=== PATIENT | female | born 1930 | race Caucasian/White ===

== ENCOUNTER 2017-09-22 20:28 | Inpatient (IN) | payer MEDICARE, OTHER ==
[~2017-09-22] VITALS: Ht 157.5 cm; Wt 63.5 kg
[~2017-09-22 20:28] MED LIST: ACET160O10 GT; ALBU2.5V13 IH; ALPR0.25 GT; ALPR0.5T GT; AMIO200T2 GT; AMLO5TAB4 GT; BENEFIBER GT; BISA10SU61 RC; CLON1PAT13 TD; CLOP75TA15 GT; DEXT1DRO3 OP; DIPH25CA83 GT; DOCU50LI GT; ESCI10TA GT; FOLI1TAB16 GT; FURO-145 GT; GUAI5SYR GT; HYDR-4075 GT; HYDR-552 GT; LACT10SO29 GT; METO25TA6 GT; METO5TAB87 GT; MULT473L GT; PANT40SU GT; POLY17PO4 GT; POTA10TA15 GT; PRAV20TA4 GT; PROT946L GT; SIME40DR2 GT; VORI200T4 GT; [UNRECOGNIZED DRUG - CODE] GT; [UNRECOGNIZED DRUG - CODE] SQ
[2017-09-22] MEDS ORDERED: methylPREDNISolone SOD SUCC 125 MG/2ML VIAL IV ONE (20:30)
[2017-09-22] MEDS ORDERED: IPRATROPIUM NEB FS 0.5 MG/2.5 ML AMPUL.NEB NEB ONE (20:30)
[2017-09-22] MEDS ORDERED: ALBUTEROL FS 2.5 MG/3 ML VIAL.NEB NEB ONE (20:30)
[2017-09-22] MEDS ORDERED: methylPREDNISolone SOD SUCC 125 MG/2ML VIAL ONE (20:33)
[2017-09-22 20:46] LABS: BASOPHILS # (AUTO) 0.1 /CMM (0.0-0.2); BASOPHILS % (AUTO) 0.6 % (0.0-2.0); EOSINOPHILS # (AUTO) 0.2 /CMM (0.0-0.7); HEMATOCRIT 30 % (33-45); HEMOGLOBIN 10.2 g/dL (11.5-14.8); LYMPHOCYTES # (AUTO) 2.8 /CMM (0.8-4.8); LYMPHOCYTES % (AUTO) 16.3 % (20.0-44.0); MEAN CORPUSCULAR HEMOGLOBIN 29 PG (26.0-33.0); MEAN CORPUSCULAR HGB CONC 34 g/dl (31.0-36.0); MEAN CORPUSCULAR VOLUME 87 fL (82-100); MONOCYTES # (AUTO) 0.7 /CMM (0.1-1.30); MONOCYTES % (AUTO) 3.9 % (2.0-12.0); NEUTROPHILS # (AUTO) 13.6 /CMM (1.8-8.9); NEUTROPHILS % (AUTO) 78.2 % (43.0-81.0); PLATELET COUNT (AUTO) 550 /CMM (150-450); RDW COEFFICIENT OF VARIATION 13.7 (11.5-15.0); RED BLOOD CELL COUNT(AUTO) 3.49 MIL/uL (4.0-5.2); WHITE BLOOD COUNT (AUTO) 17.4 K/uL (4.3-11.0)
[2017-09-22] MEDS ORDERED: ALBUTEROL FS 2.5 MG/3 ML VIAL.NEB ONE (21:02)
[2017-09-22] MEDS ORDERED: IPRATROPIUM NEB FS 0.5 MG/2.5 ML AMPUL.NEB ONE (21:02)
[2017-09-22 21:06] LABS: INR 1.02 (0.87-1.13); PROTHROMBIN TIME 10.6 SECS (9.5-12.7)
[2017-09-22 21:07] LABS: CALCIUM, SERUM 9.7 mg/dL (8.5-10.1); CARBON DIOXIDE 29 mmol/L (21-32); CHLORIDE 105 mmol/L (98-107); CREATININE 2.3 mg/dL (0.6-1.3); GLUCOSE 129 mg/dL (74-106); POTASSIUM 4.7 mmol/L (3.5-5.1); SODIUM SERUM 142 mmol/L (136-145); UREA NITROGEN, BLOOD 35 mg/dL (7-18)
[2017-09-22 21:13] LABS: ALANINE AMINOTRANSFERASE 19 U/L (12-78); ALBUMIN 3.3 g/dL (3.4-5.0); ALKALINE PHOSPHATASE 152 U/L (46-116); ASPARTATE AMINOTRANSFERASE 26 U/L (15-37); BILIRUBIN,DIRECT 0.1 mg/dL (0.0-0.2); BILIRUBIN,TOTAL 0.5 mg/dL (0.2-1.0); TOTAL PROTEIN, SERUM 8.1 g/dL (6.4-8.2)
[2017-09-22 21:14] LABS: TROPONIN I < 0.017 ng/mL (0.00-0.056)
[2017-09-22] MEDS ORDERED: IV NS 0.9% 1,000 ML IV PRN (21:38)
[2017-09-22 22:00] VITALS: BP_SYST 120; BP_SYST 129; BP_DIAS 53
[2017-09-22] MEDS ORDERED: ONDANSETRON HCL/PF 4 MG/2 ML VIAL IVP PRN (22:00)
[2017-09-22] MEDS ORDERED: HYDROCODONE/APAP 5/325MG 1 EACH TABLET PO PRN (22:00)
[2017-09-22] MEDS ORDERED: ENOXAPARIN SODIUM 30 MG/0.3 ML DISP.SYRIN SQ SCH (22:00)
[2017-09-22] MEDS ORDERED: Z GUARD REMEDY 2 OZ OINT TP PRN (22:00)
[2017-09-22] MEDS ORDERED: PRAVASTATIN SODIUM 20 MG TABLET GT SCH (22:00)
[2017-09-22] MEDS ORDERED: PIPERACILLIN /TAZOBACTAM 2.25 G VIAL IV ONE (22:52)
[2017-09-22] MEDS ORDERED: ENOXAPARIN SODIUM 30 MG/0.3 ML DISP.SYRIN ONE (22:53)
[2017-09-22] MEDS: PIPERACILLIN /TAZOBACTAM 2.25 G in IV D5W 50 ML IV SCH (23:11)
[2017-09-23] VITALS: BP_SYST 111; BP_SYST 118; BP_DIAS 49; BP_DIAS 57
[2017-09-23] MEDS ORDERED: ALBUTEROL FS 2.5 MG/0.5 ML VIAL.NEB IH SCH
[2017-09-23] MEDS ORDERED: QUET25TA PO (01:10)
[2017-09-23] MEDS ORDERED: CLON0.5T4 PO (01:11)
[2017-09-23] MEDS ORDERED: QUETIAPINE FUMARATE 25 MG TABLET GT PRN (01:30)
[2017-09-23] MEDS ORDERED: ALBUTEROL FS 2.5 MG/0.5 ML VIAL.NEB ONE ×2 (02:27→07:22)
[2017-09-23 04:00] VITALS: BP 109/55
[2017-09-23] MEDS ORDERED: PIPERACILLIN /TAZOBACTAM 2.25 G VIAL IV ONE (05:17)
[2017-09-23] MEDS: PIPERACILLIN /TAZOBACTAM 2.25 G in IV D5W 50 ML IV SCH ×3 (05:28→17:17)
[2017-09-23] MEDS: ALBUTEROL FS 2.5 MG/0.5 ML VIAL.NEB IH SCH ×3 (07:28→19:55)
[2017-09-23 07:56] LABS: HEMATOCRIT 24 % (33-45); HEMOGLOBIN 7.9 g/dL (11.5-14.8); LYMPHOCYTES # (AUTO) 0.2 /CMM (0.8-4.8); LYMPHOCYTES % (AUTO) 1.4 % (20.0-44.0); MEAN CORPUSCULAR HEMOGLOBIN 28 PG (26.0-33.0); MEAN CORPUSCULAR HGB CONC 32 g/dl (31.0-36.0); MEAN CORPUSCULAR VOLUME 88 fL (82-100); MONOCYTES # (AUTO) 0.2 /CMM (0.1-1.30); MONOCYTES % (AUTO) 1.1 % (2.0-12.0); NEUTROPHILS # (AUTO) 15.2 /CMM (1.8-8.9); NEUTROPHILS % (AUTO) 97.5 % (43.0-81.0); PLATELET COUNT (AUTO) 301 /CMM (150-450); RDW COEFFICIENT OF VARIATION 14.6 (11.5-15.0); RED BLOOD CELL COUNT(AUTO) 2.78 MIL/uL (4.0-5.2); WHITE BLOOD COUNT (AUTO) 15.6 K/uL (4.3-11.0)
[2017-09-23 08:00] VITALS: BP 121/61
[2017-09-23 08:27] LABS: B-TYPE NATRIURETIC PEPTIDE 17987 PG/ML (0-125); CALCIUM, SERUM 8.9 mg/dL (8.5-10.1); CARBON DIOXIDE 27 mmol/L (21-32); CHLORIDE 108 mmol/L (98-107); CREATININE 2.5 mg/dL (0.6-1.3); GLUCOSE 195 mg/dL (74-106); PHOSPHORUS 4.7 mg/dL (2.5-4.9); POTASSIUM 4.4 mmol/L (3.5-5.1); SODIUM SERUM 144 mmol/L (136-145); UREA NITROGEN, BLOOD 38 mg/dL (7-18)
[2017-09-23 08:32] LABS: CHOLESTEROL 153 mg/dL (<200); HDL CHOLESTEROL 52 mg/dL (40-60); LDL 81 mg/dL (0-99); THYROID STIMULATING HORMONE 0.019 uIU/mL (0.358-3.74); TRIGLYCERIDES 75 mg/dL (30-150)
[2017-09-23] MEDS ORDERED: VORICONAZOLE 200 MG TABLET PO SCH (09:00)
[2017-09-23] MEDS ORDERED: FOLIC ACID 1 MG TABLET GT SCH (09:00)
[2017-09-23] MEDS ORDERED: AMIODARONE HCL 200 MG TABLET GT SCH (09:00)
[2017-09-23] MEDS ORDERED: AMIODARONE HCL 200 MG TABLET PO SCH (09:00)
[2017-09-23] MEDS ORDERED: CLOPIDOGREL BISULFATE 75 MG TABLET GT SCH (09:00)
[2017-09-23] MEDS ORDERED: ESCITALOPRAM OXALATE (10 MG) 10 MG TABLET PO SCH (09:00)
[2017-09-23] MEDS ORDERED: ESCITALOPRAM OXALATE (10 MG) 10 MG TABLET GT SCH (09:00)
[2017-09-23 09:25] LABS: FERRITIN 630 ng/mL (8-388)
[2017-09-23 09:33] LABS: IRON, SERUM 18 ug/dl (50-175); TOTAL IRON BINDING CAPACITY 211 ug/dl (250-450)
[2017-09-23] MEDS: CLOPIDOGREL BISULFATE 75 MG TABLET PO SCH (09:45)
[2017-09-23] MEDS: clonazePAM 0.5 MG TABLET PO SCH (09:46)
[2017-09-23] MEDS: PANTOPRAZOLE 40 MG VIAL IV SCH (09:46)
[2017-09-23] MEDS: FOLIC ACID 1 MG TABLET PO SCH (09:46)
[2017-09-23] MEDS ORDERED: LORAZEPAM 1 MG TABLET PO PRN (10:30)
[2017-09-23] MEDS: BOOST PLUS FOOD-CHOCLATE 237 ML BOX PO SCH ×2 (12:30→17:00)
[2017-09-23] MEDS: SOD FERRIC GLUC 125 MG in IV NS 0.9% 100 ML IV SCH (13:46)
[2017-09-23] MEDS ORDERED: LORAZEPAM INJ 2 MG/ML VIAL IV PRN (14:00)
[2017-09-23 14:18] LABS: ABG BASE EXCESS -0.6 mmol/L; ABG OXYGEN SATURATION 95.6 % (92.0-98.5); ABG PH 7.398 (7.350-7.450); ABG PO2 85.4 mmHg (75.0-100.0); AaDO2 587.6 mmHg; COHb 0.3 % (0.5-1.5); O2Hb 94.4 % (94.0-97.0); SITE, ABG Right Radial
[2017-09-23] MEDS ORDERED: FUROSEMIDE 40 MG/4 ML VIAL IV ONE (15:45)
[2017-09-23 16:00] VITALS: BP 119/46
[2017-09-23] MEDS: IV NS 0.9% 1,000 ML IV PRN (17:16)
[2017-09-23 20:00] VITALS: BP 124/51
[2017-09-23] MEDS ORDERED: ENOXAPARIN SODIUM 30 MG/0.3 ML DISP.SYRIN SQ SCH (21:00)
[2017-09-23] MEDS: ATORVASTATIN 10 MG TABLET PO SCH (21:16)
[2017-09-23] MEDS ORDERED: ATORVASTATIN 10 MG TABLET GT SCH (22:00)
[2017-09-23] MEDS ORDERED: LINEZOLID RTU BAG 300 ML IV ONE (23:29)
[2017-09-23] MEDS: QUETIAPINE FUMARATE 25 MG TABLET PO PRN (23:50)
[2017-09-23] MEDS: LINEZOLID RTU BAG 600 MG in PREMIX 1 EA IV SCH (23:51)
[2017-09-24] VITALS: BP 110/41
[2017-09-24 00:05] LABS: APPEARANCE,URINE SL CLOUDY (CLEAR); BILIRUBIN,URINE NEGATIVE (NEGATIVE); BLOOD, URINE TRACE Ery/uL (NEGATIVE); COLOR,URINE YELLOW (YELLOW); KETONES,URINE NEGATIVE (NEGATIVE); LEUKOCYTE ESTERASE ,URINE 2+ (NEGATIVE); NITRITE, URINE NEGATIVE (NEGATIVE); PROTEIN,URINE NEGATIVE (NEGATIVE); UGLUCOSE NEGATIVE (NEGATIVE); UROBILINOGEN,URINE 0.2 EU/dL (0.2)
[2017-09-24 00:12] LABS: BACTERIA,URINE Rare /HPF (None Seen); SQUAMOUS EPITHELIAL CELL,UR Rare /HPF (None Seen)
[2017-09-24 00:13] LABS: WBC,URINE 21-50 /HPF (0-3); YEAST,URINE Many /HPF (None Seen)
[2017-09-24] MEDS: ALBUTEROL FS 2.5 MG/0.5 ML VIAL.NEB IH SCH ×4 (01:53→19:27)
[2017-09-24 04:00] VITALS: BP 116/48
[2017-09-24] MEDS: PIPERACILLIN /TAZOBACTAM 2.25 G in IV D5W 50 ML IV SCH ×5 (05:43→17:08)
[2017-09-24 07:03] LABS: HEMATOCRIT 23 % (33-45); HEMOGLOBIN 7.5 g/dL (11.5-14.8); LYMPHOCYTES # (AUTO) 0.5 /CMM (0.8-4.8); LYMPHOCYTES % (AUTO) 2.5 % (20.0-44.0); MEAN CORPUSCULAR HEMOGLOBIN 28 PG (26.0-33.0); MEAN CORPUSCULAR HGB CONC 32 g/dl (31.0-36.0); MEAN CORPUSCULAR VOLUME 88 fL (82-100); MONOCYTES # (AUTO) 0.3 /CMM (0.1-1.30); MONOCYTES % (AUTO) 1.5 % (2.0-12.0); PLATELET COUNT (AUTO) 302 /CMM (150-450); RDW COEFFICIENT OF VARIATION 14.7 (11.5-15.0); RED BLOOD CELL COUNT(AUTO) 2.65 MIL/uL (4.0-5.2); WHITE BLOOD COUNT (AUTO) 21.9 K/uL (4.3-11.0)
[2017-09-24 07:28] LABS: CALCIUM, SERUM 8.7 mg/dL (8.5-10.1); CARBON DIOXIDE 26 mmol/L (21-32); CHLORIDE 107 mmol/L (98-107); CREATININE 2.3 mg/dL (0.6-1.3); GLUCOSE 151 mg/dL (74-106); MAGNESIUM 2.7 mg/dL (1.8-2.4); PHOSPHORUS 3.7 mg/dL (2.5-4.9); POTASSIUM 4.2 mmol/L (3.5-5.1); SODIUM SERUM 142 mmol/L (136-145); UREA NITROGEN, BLOOD 47 mg/dL (7-18)
[2017-09-24 08:00] VITALS: BP 128/57
[2017-09-24] MEDS: BOOST PLUS FOOD-CHOCLATE 237 ML BOX PO SCH ×2 (08:00→17:08)
[2017-09-24] MEDS: clonazePAM 0.5 MG TABLET PO SCH (09:28)
[2017-09-24] MEDS: CLOPIDOGREL BISULFATE 75 MG TABLET PO SCH (09:28)
[2017-09-24] MEDS: FOLIC ACID 1 MG TABLET PO SCH (09:28)
[2017-09-24] MEDS: PANTOPRAZOLE 40 MG VIAL IV SCH (09:29)
[2017-09-24] MEDS: LINEZOLID RTU BAG 600 MG in PREMIX 1 EA IV SCH ×2 (09:38→21:29)
[2017-09-24] MEDS: FUROSEMIDE 100 MG/10 ML VIAL IV SCH ×3 (10:27→17:08)
[2017-09-24] MEDS: IV NS 0.9% 1,000 ML IV PRN (12:39)
[2017-09-24] MEDS ORDERED: SOD FERRIC GLUC 125 MG in IV NS 0.9% 100 ML IV SCH (14:00)
[2017-09-24] MEDS: SOD FERRIC GLUC 125 MG in IV NS 0.9% 100 ML IV SCH (14:51)
[2017-09-24 16:00] VITALS: BP 132/72
[2017-09-24] MEDS: MEROPENEM 500 MG in IV NS 0.9% 50 ML IV SCH (20:00)
[2017-09-24] MEDS: ATORVASTATIN 10 MG TABLET PO SCH (21:29)
[2017-09-25] VITALS: BP 125/50
[2017-09-25] MEDS: ALBUTEROL FS 2.5 MG/0.5 ML VIAL.NEB IH SCH ×4 (01:22→19:55)
[2017-09-25] MEDS: ACETAMINOPHEN 325 MG TABLET PO PRN (06:57)
[2017-09-25 07:13] LABS: EOSINOPHILS # (AUTO) 0.7 /CMM (0.0-0.7); EOSINOPHILS % (AUTO) 3.1 % (0.0-6.0); HEMATOCRIT 27 % (33-45); HEMOGLOBIN 8.8 g/dL (11.5-14.8); LYMPHOCYTES # (AUTO) 1.2 /CMM (0.8-4.8); LYMPHOCYTES % (AUTO) 5.1 % (20.0-44.0); MEAN CORPUSCULAR HEMOGLOBIN 29 PG (26.0-33.0); MEAN CORPUSCULAR HGB CONC 33 g/dl (31.0-36.0); MEAN CORPUSCULAR VOLUME 88 fL (82-100); MONOCYTES # (AUTO) 0.4 /CMM (0.1-1.30); MONOCYTES % (AUTO) 1.8 % (2.0-12.0); NEUTROPHILS # (AUTO) 20.4 /CMM (1.8-8.9); PLATELET COUNT (AUTO) 327 /CMM (150-450); RDW COEFFICIENT OF VARIATION 14.6 (11.5-15.0); RED BLOOD CELL COUNT(AUTO) 3.04 MIL/uL (4.0-5.2); WHITE BLOOD COUNT (AUTO) 22.6 K/uL (4.3-11.0)
[2017-09-25 07:37] LABS: ALANINE AMINOTRANSFERASE 43 U/L (12-78); ALBUMIN 2.9 g/dL (3.4-5.0); ALKALINE PHOSPHATASE 126 U/L (46-116); ASPARTATE AMINOTRANSFERASE 33 U/L (15-37); BILIRUBIN,TOTAL 0.6 mg/dL (0.2-1.0); CALCIUM, SERUM 8.9 mg/dL (8.5-10.1); CARBON DIOXIDE 34 mmol/L (21-32); CHLORIDE 104 mmol/L (98-107); CREATININE 2.4 mg/dL (0.6-1.3); GLUCOSE 89 mg/dL (74-106); MAGNESIUM 2.2 mg/dL (1.8-2.4); PHOSPHORUS 3.8 mg/dL (2.5-4.9); POTASSIUM 3.6 mmol/L (3.5-5.1); SODIUM SERUM 146 mmol/L (136-145); TOTAL PROTEIN, SERUM 6.9 g/dL (6.4-8.2); UREA NITROGEN, BLOOD 48 mg/dL (7-18)
[2017-09-25 08:00] VITALS: BP 125/50
[2017-09-25] MEDS: BOOST PLUS FOOD-CHOCLATE 237 ML BOX PO SCH ×2 (08:55→16:23)
[2017-09-25] MEDS: MEROPENEM 500 MG in IV NS 0.9% 50 ML IV SCH ×2 (09:03→20:47)
[2017-09-25] MEDS: PANTOPRAZOLE 40 MG VIAL IV SCH (09:04)
[2017-09-25] MEDS: CLOPIDOGREL BISULFATE 75 MG TABLET PO SCH (09:04)
[2017-09-25] MEDS: clonazePAM 0.5 MG TABLET PO SCH (09:04)
[2017-09-25] MEDS: FOLIC ACID 1 MG TABLET PO SCH (09:04)
[2017-09-25 09:58] LABS: BAND % (MANUAL) 1 % (0.0-5.0); EOSINOPHILS % (MANUAL) 3 % (0-4); LYMPHOCYTES % (MANUAL) 8 % (16-48); MONOCYTES % (MANUAL) 4 % (0-11.0); NEUTROPHILS % (MANUAL) 84 (42-76)
[2017-09-25] MEDS: LINEZOLID RTU BAG 600 MG in PREMIX 1 EA IV SCH ×2 (10:09→22:16)
[2017-09-25 12:00] VITALS: BP 125/50
[2017-09-25 16:00] VITALS: BP 124/53
[2017-09-25] MEDS: IV NS 0.9% 1,000 ML IV PRN (16:08)
[2017-09-25] MEDS: SOD FERRIC GLUC 125 MG in IV NS 0.9% 100 ML IV SCH (16:08)
[2017-09-25 20:00] VITALS: BP 133/74
[2017-09-25] MEDS: ATORVASTATIN 10 MG TABLET PO SCH (22:16)
[2017-09-26] VITALS (7 sets, daily range): BP systolic 126–142; BP diastolic 44–55
[2017-09-26] MEDS: ACETAMINOPHEN 325 MG TABLET PO PRN ×2 (00:04→20:42)
[2017-09-26] MEDS: ALBUTEROL FS 2.5 MG/0.5 ML VIAL.NEB IH SCH ×4 (00:54→19:09)
[2017-09-26] MEDS: QUETIAPINE FUMARATE 25 MG TABLET PO PRN ×2 (01:13→21:48)
[2017-09-26 07:32] LABS: CALCIUM, SERUM 9.1 mg/dL (8.5-10.1); CARBON DIOXIDE 32 mmol/L (21-32); CHLORIDE 106 mmol/L (98-107); CREATININE 1.9 mg/dL (0.6-1.3); GLUCOSE 90 mg/dL (74-106); MAGNESIUM 2.2 mg/dL (1.8-2.4); PHOSPHORUS 3.7 mg/dL (2.5-4.9); POTASSIUM 3.7 mmol/L (3.5-5.1); SODIUM SERUM 143 mmol/L (136-145); UREA NITROGEN, BLOOD 35 mg/dL (7-18)
[2017-09-26 07:43] LABS: BASOPHILS % (AUTO) 0.1 % (0.0-2.0); EOSINOPHILS # (AUTO) 0.6 /CMM (0.0-0.7); EOSINOPHILS % (AUTO) 3.9 % (0.0-6.0); HEMATOCRIT 25 % (33-45); LYMPHOCYTES # (AUTO) 1.3 /CMM (0.8-4.8); LYMPHOCYTES % (AUTO) 8.7 % (20.0-44.0); MEAN CORPUSCULAR HEMOGLOBIN 29 PG (26.0-33.0); MEAN CORPUSCULAR HGB CONC 33 g/dl (31.0-36.0); MEAN CORPUSCULAR VOLUME 88 fL (82-100); MONOCYTES # (AUTO) 0.6 /CMM (0.1-1.30); MONOCYTES % (AUTO) 3.8 % (2.0-12.0); NEUTROPHILS # (AUTO) 12.2 /CMM (1.8-8.9); NEUTROPHILS % (AUTO) 83.5 % (43.0-81.0); PLATELET COUNT (AUTO) 291 /CMM (150-450); RDW COEFFICIENT OF VARIATION 14.6 (11.5-15.0); RED BLOOD CELL COUNT(AUTO) 2.79 MIL/uL (4.0-5.2); WHITE BLOOD COUNT (AUTO) 14.6 K/uL (4.3-11.0)
[2017-09-26] MEDS: FOLIC ACID 1 MG TABLET PO SCH (09:37)
[2017-09-26] MEDS: CLOPIDOGREL BISULFATE 75 MG TABLET PO SCH (09:37)
[2017-09-26] MEDS: clonazePAM 0.5 MG TABLET PO SCH (09:37)
[2017-09-26] MEDS: LINEZOLID RTU BAG 600 MG in PREMIX 1 EA IV SCH ×2 (09:39→22:20)
[2017-09-26] MEDS: PANTOPRAZOLE 40 MG VIAL IV SCH (09:39)
[2017-09-26] MEDS: MEROPENEM 500 MG in IV NS 0.9% 50 ML IV SCH ×2 (09:40→21:47)
[2017-09-26] MEDS: BOOST PLUS FOOD-CHOCLATE 237 ML BOX PO SCH ×2 (09:41→17:50)
[2017-09-26] MEDS ORDERED: BARIUM SULFATE 148 GM SUSP.RECON PO ONE (10:48)
[2017-09-26] MEDS ORDERED: BARIUM SULFATE 240 ML ORAL.SUSP PO ONE (10:48)
[2017-09-26] MEDS ORDERED: [UNRECOGNIZED DRUG - CODE] IH (12:28)
[2017-09-26] MEDS: SOD FERRIC GLUC 125 MG in IV NS 0.9% 100 ML IV SCH (14:24)
[2017-09-26] MEDS: ATORVASTATIN 10 MG TABLET PO SCH (22:29)
[2017-09-26] MEDS: IV NS 0.9% 1,000 ML IV PRN (23:48)
[2017-09-27] VITALS: BP 136/48
[2017-09-27] MEDS: ALBUTEROL FS 2.5 MG/0.5 ML VIAL.NEB IH SCH ×3 (02:18→13:38)
[2017-09-27 08:00] VITALS: BP 149/53
[2017-09-27] MEDS: BOOST PLUS FOOD-CHOCLATE 237 ML BOX PO SCH ×2 (08:30→16:19)
[2017-09-27] MEDS: FOLIC ACID 1 MG TABLET PO SCH (08:30)
[2017-09-27] MEDS: CLOPIDOGREL BISULFATE 75 MG TABLET PO SCH (08:30)
[2017-09-27] MEDS: clonazePAM 0.5 MG TABLET PO SCH (08:30)
[2017-09-27] MEDS: PANTOPRAZOLE 40 MG VIAL IV SCH (08:31)
[2017-09-27] MEDS: MEROPENEM 500 MG in IV NS 0.9% 50 ML IV SCH (08:31)
[2017-09-27] MEDS: LINEZOLID RTU BAG 600 MG in PREMIX 1 EA IV SCH (09:53)
[2017-09-27] MEDS: SOD FERRIC GLUC 125 MG in IV NS 0.9% 100 ML IV SCH (14:43)
[2017-09-27 15:51] LABS: ABG BASE EXCESS 3.3 mmol/L; ABG OXYGEN SATURATION 89.5 % (92.0-98.5); ABG PCO2 34.8 mmHg (35.0-45.0); ABG PO2 54.4 mmHg (75.0-100.0); AaDO2 154.7 mmHg; COHb 0.1 % (0.5-1.5); MetHb 0.6 % (0.0-1.5); O2Hb 88.9 % (94.0-97.0); SITE, ABG Right Radial; VENT MODE, BG 35% COOL AERO
[2017-09-27 16:00] VITALS: BP 150/53
== END 2017-09-27 18:06 | disposition home or self-care (01) | DRG 871 ==
LOC: ER 20:29 → TELE 21:50 → MED 09-23 10:01 → TELE-TD 09-23 17:19 → TELE1 09-24 11:20 → MEDSG1 09-27 11:00
DX: A41.9 Sepsis, unspecified organism (principal); N17.0 Acute kidney failure with tubular necrosis; J96.21 Acute and chronic respiratory failure with hypoxia; I50.33 Acute on chronic diastolic (congestive) heart failure; J15.1 Pneumonia due to Pseudomonas; Z93.0 Tracheostomy status; D68.59 Other primary thrombophilia; I27.20 Pulmonary hypertension, unspecified; I13.0 Hypertensive heart and chronic kidney disease with heart failure and stage 1 through stage 4 chronic kidney disease, or unspecified chronic kidney disease; J44.0 Chronic obstructive pulmonary disease with (acute) lower respiratory infection; D63.8 Anemia in other chronic diseases classified elsewhere; F41.9 Anxiety disorder, unspecified; N18.9 Chronic kidney disease, unspecified; Z87.891 Personal history of nicotine dependence; Z90.710 Acquired absence of both cervix and uterus; D47.3 Essential (hemorrhagic) thrombocythemia; R65.20 Severe sepsis without septic shock; I48.2 Chronic atrial fibrillation; D50.9 Iron deficiency anemia, unspecified; Z88.2 Allergy status to sulfonamides; K59.00 Constipation, unspecified; I35.0 Nonrheumatic aortic (valve) stenosis; Z88.1 Allergy status to other antibiotic agents; Z85.118 Personal history of other malignant neoplasm of bronchus and lung; R91.1 Solitary pulmonary nodule
CPT/HCPCS: 31720; 36415; 36600; 71010-TC; 71250-TC; 74230-TC; 80048-TC; 80053-TC; 80061-TC; 80076-TC; 81000-TC; 82728-TC; 82803-TC; 83540-TC; 83605-TC; 83735-TC; 83880; 84100-TC; 84443-TC; 84480; 84484-TC; 85025-TC; 85730-TC; 87040-TC; 87070-TC; 87081-TC; 87086-TC; 87186-TC; 87400; 92526; 92611-TC; 93307-TC; 94640-TC; 94664-TC; 94762-TC; 99082-TC; A4216; A4606; A4623; C9113; J1650; J1940; J2020; J2060; J2185; J2543; J2916; J2930; J3490; J7030; J7060; Z7610